=== PATIENT | male | born 1945 | race Caucasian/White ===

== ENCOUNTER 2019-12-24 19:37 | Emergency (ER) | payer MEDICARE, OTHER ==
[~2019-12-24] VITALS: Ht 182.9 cm; Wt 111.1 kg
[~2019-12-24 19:37] MED LIST: LIPITOR10 MG PO; METFORMIN HCL500 MG PO
[2019-12-24] MEDS ORDERED: ZETIA10 MG PO (19:50)
[2019-12-24] MEDS ORDERED: NAMENDA XR1 EACH PO (19:50)
[2019-12-24] MEDS ORDERED: RANEXA1000 MG PO (19:51)
[2019-12-24] MEDS ORDERED: ARICEPT10 M1 PO (19:51)
[2019-12-24] MEDS ORDERED: FENOFIBRATE150 MG PO (19:52)
[2019-12-24] MEDS ORDERED: CARVEDILOL12.5 MG PO (19:52)
[2019-12-24] MEDS ORDERED: DUTASTERIDE0.5 MG PO (19:52)
[2019-12-24] MEDS ORDERED: DERMACINRX5000 UNIT PO (19:53)
[2019-12-24] MEDS ORDERED: GLIMEPIRIDE1 MG PO (19:53)
[2019-12-24] MEDS ORDERED: METFORMIN HCL500 M3 PO (19:54)
[2019-12-24] MEDS ORDERED: COZAAR 25 MG TA25 M2 PO (19:54)
[2019-12-24] MEDS ORDERED: PROTONIX40 M4 PO (19:54)
[2019-12-24] MEDS ORDERED: CHILDREN'S ASPI81 M1 PO (19:55)
[2019-12-24] MEDS ORDERED: BACLOFEN 10MG T10 MG PO (20:40)
[2019-12-24 21:10] VITALS: BP 147/94
--- NOTE | 2019-12-25 11:54 | EKG ---
[place] [address] ELECTROCARDIOGRAM REPORT Name: MERRICK DSOUZA Room: [facility]#: [id number] Admission: 12/24/19 Attend Phys: Discharge: 12/24/19 Date of : 49 Date of Service: 12/24/192038 Report #: [id number] THIS REPORT FOR: //name// [facility] ED Test Date: 2019-12-24 Test Time: 20:39:27 Pat Name: MERRICK DSOUZA Department: Room: Gender: Conventional Underwriter: AMY : 1945 Requested By: Candie Short Order Number: [id number] : Vahe Olivo Measurements Intervals [place] Rate: 81 P: 68 IA: 186 QRS: 83 QRSD: 120 T: 65 QT: 404 QTc: 469 Interpretive Statements Sinus rhythm Nonspecific intraventricular conduction delay No previous ECG available for comparison Electronically Signed On 12-25-2019 11:53:58 CDT by Vahe Olivo [email or web address] <ELECTRONICALLY SIGNED> By: Vahe Olivo MD, [facility] 12/25/19 1153 [id number] 38 Vahe Olivo MD, FACC /EPI
== END 2019-12-24 21:27 | disposition home or self-care (01) ==
LOC: M.ERS 19:37
DX: R06.6 Hiccough (principal); I10 Essential (primary) hypertension; E11.9 Type 2 diabetes mellitus without complications; E78.00 Pure hypercholesterolemia, unspecified; Z79.899 Other long term (current) drug therapy; Z79.82 Long term (current) use of aspirin; Z88.6 Allergy status to analgesic agent